=== PATIENT | male | born 1995 | race Caucasian/White ===

== ENCOUNTER 2022-05-07 21:12 | Emergency (ER) | payer SELFPAY ==
[2022-05-07 21:13] VITALS: BP 165/108; PULSE 90; RESP 15; TEMP 35.8; O2SAT 100; BMI 34.4
[2022-05-07 21:53] LABS: Absolute Lymphocyte Count 1.44 X10^3/uL (0.83-4.51); Absolute Neutrophil Count 4.5 X10^3/uL (2.0-7.7); Basophil# 0.04 X10^3/uL; Basophil% 0.6 % (0-1); Eosinophil# 0.05 X10^3/uL; Eosinophils% 0.8 % (0-5); Hematocrit 38.7 % (40-54); Hemoglobin 13.5 g/dL (13.0-16.5); Lymphocyte # 1.44 X10^3/ul (0.83-4.51); Lymphocyte % 22.6 % (19-41); Mean Corp Hgb Conc 34.9 g/dL (32-36); Mean Corpuscular Hgb 30.5 pg (27.0-32.0); Mean Corpuscular Volume 87.4 fL (80-94); Mean Platelet Vol. 9.1 fl (6.2-12.0); Monocyte# 0.32 X10^3/uL; NRBC Flagged by Analyzer 0 % (0-5); Neutrophil # 4.49 X10^3/uL (2.7-7.7); Neutrophil % 70.4 % (47-70); Platelet Count 303 K/mm3 (150-450); RBC Distribution Width CV 12.7 % (11.6-14.6); RBC Distribution Width SD 40.7 fl (35.1-43.9); Red Blood Count 4.43 M/mm3 (4.6-6.2); White Blood Count 6.4 K/mm3 (4.4-11.0)
[2022-05-07] MEDS: 0.9% Normal Saline 1,000 ML 999 ML IV (21:54)
--- NOTE | 2022-05-07 22:03 | EDS_ITS ---
HPI <LUIS ARMANDO Thompson - Last Filed: 05/07/22 22:10> History of Present Illness Chief Complaint: Hyperglycemia Narrative Narrative: Patient presents today with hyperglycemia. He states he has had nausea and blurry vision for the past few days. He went to [facility] on Friday where they obtained a blood glucose level in the 500s. Patient was admitted to the hospital and was given insulin and started on 1000mg metformin BID and 5mg glipizide BID. Patient was discharged yesterday evening and given follow-up with an home health care respiratory therapist. Patient states he came home today and still felt nauseous and had blurry vision. He states his diet today has consisted of a bagel and [place] fries. He dates he has taken both doses of his metformin today and 1 dose of his glipizide. He was not sent home with a prescription for insulin. Patient denies a prior history of diabetes mellitus. PFSH <LUIS ARMANDO Thompson - Last Filed: 05/07/22 22:10> PFSH Allergy/AdvReac Type Severity Reaction Status Date / Time Penicillins Allergy PT UNSURE Verified 05/07/22 21:17 OF REACTION Social History Smoking Status: Never smoker ROS <LUIS ARMANDO Thompson - Last Filed: 05/07/22 22:10> ROS ED Constitutional Constitutional ED: Denies chills, fever(s) or sweats Eyes Eyes: Reports blurry vision; Denies diplopia ENT ENT ED: Denies rhinorrhea or sore throat Cardiovascular Cardiovascular: Denies chest pain, palpitations or racing heartbeat Respiratory/Chest Respiratory/Chest: Denies cough, dyspnea or dyspnea on exertion Gastrointestinal Gastrointestinal: Reports nausea; Denies abdominal pain, diarrhea, melena or vomiting Genitourinary Genitourinary ED: Denies dysuria, hematuria or urinary frequency Musculoskeletal Musculoskeletal: Denies arthralgias, back pain or myalgias Integumentary Denies abscess, Abrasions or rash Neurologic Neurologic: Denies headache(s), paresthesias or weakness Psychiatric Psychiatric: Denies anxiety, depression or suicidal ideation EXAM <LUIS ARMANDO Thompson - Last Filed: 05/07/22 22:10> Physical Exam Const Vital Signs: 05/07/22 21:13 Temperature 96.4 F L Temperature Source Temporal Pulse Rate 90 Respiratory Rate 15 Blood Pressure 165/108 H Blood Pressure Mean 127 Pulse Ox 100 Oxygen Delivery Method Room Air Positive well nourished and well developed General Appearance ED: well developed and NAD HEENT Reports moist mucous membranes Negative for trauma or tenderness Eyes PERRL and EOMs intact bilaterally Neck no lymphadenopathy and supple Chest Wall inspection of chest normal Resp normal respiratory effort and clear to auscultation bilaterally Cardio regular rate, regular rhythm and no murmurs GI non-tender, non-distended and no masses Palpation: soft Extremity normal to inspection General Extremety ED: Negative for edema General Extremity: Negative for edema Neuro oriented x3, CN's II-XII intact bilaterally and no sensory deficits noted Sensorium / Orientation: alert Motor Exam: strength 5/5 throughout Psych mental status grossly normal Skin no rashes or lesions noted, no wounds and skin turgor normal <Matthew Nixon MD - Last Filed: 05/07/22 22:53> Physical Exam Const Vital Signs: 05/07/22 21:13 Temperature 96.4 F L Temperature Source Temporal Pulse Rate 90 Respiratory Rate 15 Blood Pressure 165/108 H Blood Pressure Mean 127 Pulse Ox 100 Oxygen Delivery Method Room Air MDM <LUIS ARMANDO Thompson - Last Filed: 05/07/22 22:10> [facility] MDM Narrative Medical decision making narrative: CBC, CMP, acetone level have all been obtained. Patient has been given a liter of normal saline. Lab Data Attestation: I reviewed the patient's lab results. Lab results narrative: White blood cell count 4.43, hematocrit 38.7. Labs: Laboratory Results - last 24 hr 05/07/22 05/07/22 05/07/22 21:47 21:47 21:48 WBC 6.4 RBC 4.43 L Hgb 13.5 Hct 38.7 L MCV 87.4 MCH 30.5 MCHC 34.9 RDW Std Deviation 40.7 RDW Coeff of Adolph 12.7 Plt Count 303 MPV 9.1 Immature Gran % (Auto) 0.600 Neut % (Auto) 70.4 H Lymph % (Auto) 22.6 Gulf % (Auto) 5.0 Eos % (Auto) 0.8 Baso % (Auto) 0.6 Absolute Neuts (auto) 4.5 Absolute Lymphs (auto) 1.44 Nucleated RBC % 0 Sodium 134 L Potassium 3.8 Chloride 102 Carbon Dioxide 24.0 Anion Gap 8 BUN 7 Creatinine 0.94 Estim Creat Clear Calc 112.32 Est GFR (MDRD) Af Amer 125 Est GFR (MDRD) Non-Af 103 BUN/Creatinine Ratio 7.4 L Glucose 326 H Calcium 8.8 Total Bilirubin 0.50 AST 112 H ALT 146 H Alkaline Phosphatase 79 Total Protein 7.3 Albumin 4.0 Globulin 3.3 Albumin/Globulin Ratio 1.2 Acetone Level NEGATIVE <Matthew Nixon MD - Last Filed: 05/07/22 22:53> MDM MDM Narrative Medical decision making narrative: CBC, CMP, acetone level have all been obtained. Patient has been given a liter of normal saline. Dr. Nixon: CBC demonstrates WBC count of 6.4, hemoglobin normal at 13.5, platelet count 303. Electrolyte panel significant for sodium of 134, glucose elevated at 326 but he has a normal anion gap of 8, BUN of 7, creatinine normal at 0.94. LFTs are elevated at 112 and 146 which I think is nonspecific for his AST and ALT respectively. Acetone level is negative. Upon repeat examination, he is resting comfortably. I was going to order insulin for him an additional bag of fluids, but with him not being in diabetic ketoacidosis, he still has a dose of his glipizide to take tonight. I feel he can be discharged safely home and continue his medications as previously directed. He was instructed to start diet and exercise, and follow-up with his home health care respiratory therapist as planned. Return instructions to the emergency department were reviewed. Disposition is discharged home in stable condition. I have personally performed a face to face assessment of the patient and have reviewed the KRISTIN Note. I performed a substantive portion of the visit including all aspects of the following. My thornton findings include: History is elevated blood sugars with recent diagnosis of diabetes mellitus. Recent hospitalization at [facility], released from hospital yesterday evening. Exam is afebrile. Vital signs noted. Regular rate and rhythm. Lungs clear to auscultation bilaterally. Abdomen soft and nontender with normoactive bowel sounds. Medical Decision Making: Check labs. Check acetone. IV fluids. Take gl ipizide. Follow-up endocrinology. Discharge. Other additions or changes: [None] Lab Data Labs: Laboratory Results - last 24 hr 1205/07/22 05/07/22 21:47 21:47 21:48 WBC 6.4 RBC 4.43 L Hgb 13.5 Hct 38.7 L MCV 87.4 MCH 30.5 MCHC 34.9 RDW Std Deviation 40.7 RDW Coeff of Adolph 12.7 Plt Count 303 MPV 9.1 Immature Gran % (Auto) 0.600 Neut % (Auto) 70.4 H Lymph % (Auto) 22.6 Gulf % (Auto) 5.0 Eos % (Auto) 0.8 Baso % (Auto) 0.6 Absolute Neuts (auto) 4.5 Absolute Lymphs (auto) 1.44 Nucleated RBC % 0 Sodium 134 L Potassium 3.8 Chloride 102 Carbon Dioxide 24.0 Anion Gap 8 BUN 7 Creatinine 0.94 Estim Creat Clear Calc 112.32 Est GFR (MDRD) Af Amer 125 Est GFR (MDRD) Non-Af 103 BUN/Creatinine Ratio 7.4 L Glucose 326 H Calcium 8.8 Total Bilirubin 0.50 AST 112 H ALT 146 H Alkaline Phosphatase 79 Total Protein 7.3 Albumin 4.0 Globulin 3.3 Albumin/Globulin Ratio 1.2 Acetone Level NEGATIVE Discharge Plan Triage Chief Complaint: Hyperglycemia ED Midlevel Provider: Autumn Marina ED Provider: Matthew Nixon Dx/Rx/DC Orders Clinical Impression: Hyperglycemia, Uncontrolled blood glucose Instructions: How to Check Your Blood Sugar, ED Diabetic Hyperglycemia Primary Care Provider: Care Physician,No Primary Referrals: Care Physician,No Primary [Primary Care Provider] - Activity Restrictions/Additional Instructions: Start diet and exercise to help control your elevated blood sugars. Take your glipizide and your metformin as previously directed. Disposition Disposition: Home, Self Care
[2022-05-07 22:14] LABS: ALB/GLOB Ratio 1.2 RATIO (0.9-2.4); AST(SGOT) 112 U/L (15-37); Alanine Aminotransfer ALT/SGPT 146 U/L (16-61); Alkaline Phosphatase 79 U/L (45-117); Anion Gap 8 (5-15); BUN 7 mg/dL (7-18); BUN/Creat Ratio 7.4 RATIO (10-20); Calcium,Total 8.8 mg/dL (8.5-10.1); Chloride 102 mmol/L (98-107); Creatinine, Serum 0.94 mg/dL (0.70-1.30); EST Glomerular Filtration Rate 103 mL/min (>60); Est Glom Filt Rate - Afr Amer 125 mL/min (>60); Estimated Creatinine Clearance 112.32 ml/min; Globulin 3.3 g/dL (2.2-4.2); Glucose 326 mg/dL (74-106); Potassium 3.8 mmol/L (3.5-5.1); Protein, Total 7.3 g/dL (6.4-8.2); Sodium Level 134 mmol/L (136-145)
[2022-05-07 23:25] LABS: Bedside Glucose 278 mg/dL (74-106)
== END 2022-05-07 23:03 | disposition home or self-care (01) ==
PROVIDERS: Physician Assistant; Emergency Provider Emergency Medicine; Visit Provider Emergency Medicine
DX: R73.9 Hyperglycemia, unspecified (principal); Z79.84 Long term (current) use of oral hypoglycemic drugs
CPT/HCPCS: 80053; 82009; 82962; 85025; 99283; J7030; A4216